=== PATIENT | male | born 1925 | race Caucasian/White ===

== ENCOUNTER 2016-09-02 20:47 | Emergency (ER) | payer MEDICARE, BC ==
[2016-09-02 21:14] VITALS: BP 127/77
[2016-09-02] MEDS ORDERED: Bacitracin Oint 1 GM U/D Packet TOP ONE (21:25)
[2016-09-02] MEDS ORDERED: Lidocaine 1% 30 ML SDV INJECT ONE (21:25)
[2016-09-02] MEDS ORDERED: Diphtheria,Pertussis(Acell),Tetanus Vaccine 0.5 ML SDV IM ONE (22:02)
--- NOTE | 2016-09-02 22:05 | EDM.PDOC ---
ED HPI GENERAL MEDICAL PROBLEM - General Chief Complaint: Upper Extremity Injury/Pain Stated Complaint: SMASHED THUMB [id number] Time Seen by Provider: 09/02/16 21:22 Source of Information: Reports: Patient History Limitations: Reports: No limitations - History of Present Illness INITIAL COMMENTS - FREE TEXT/NARRATIVE: This 89 yo male patient reports to the ED with a laceration and crush injury to his right diatal thumb. 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 The patient placed a pressure bandage on his hand shortly after the incident. After the patient had dinner, the patient's daughter convinced him into coming to the ED to be evaluated. 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) Right 1-Thumb Pain Score (Numeric/FACES): 3 - Related Data Allergies Allergy/AdvReac Type Severity Reaction Status Date / Time Penicillins Allergy Rash Verified 09/02/16 21:12 Home Meds: Home Meds Levothyroxine Sodium [Synthroid] 75 mcg PO ACBREAKFAST 09/02/16 [History] Past Medical History Endocrine/Metabolic History: Reports: Hypothyroidism Social & Family History - Tobacco Use Smoking Status *Q: Never Smoker - Caffeine Use Caffeine Use: Reports: None - Recreational Drug Use Recreational Drug Use: No Review of Systems - Review of Systems Review Of Systems: ROS reveals no pertinent complaints other than HPI. Trauma Exam - Physical Exam Exam: See Below Exam Limited By: No limitations General Appearance: Reports: alert, WD/WN, no apparent distress Head: Reports: atraumatic, normocephalic Eyes: bilateral eye: EOMI, normal inspection, PERRL Ears: Reports: normal external exam Nose: Reports: normal inspection, normal mucousa, no blood Throat/Mouth: Reports: Normal inspection, Normal lips, Normal teeth, Normal gums , Normal oropharynx, Normal voice, No airway compromise Neck: Reports: non-tender, full range of motion, normal alignment, normal inspection Respiratory Exam: Reports: no respiratory distress, lungs clear, normal breath sounds Cardiovascular: Reports: normal peripheral pulses, regular rate, rhythm, no edema, no gallop, no JVD, no murmur, no rub GI/Abdominal: Reports: Normal Bowel Sounds, Soft, Non-Tender, No Organomegaly, No Distention, No Abnormal Bruit, No Mass (Male) Exam: Deferred Rectal (Males) Exam: Deferred Back: Reports: full range of motion, normal inspection, non-tender Extremities: Pain with Movement (right distal thumb) 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 ) - [place] Coma Score Best Eye Response ([place]): (4) open spontaneously Best Verbal Response ([place]): (5) oriented Best Motor Response ([place]): (6) obeys commands [place] Total: 15 ED TRAUMA EXTREMITY PROCEDURES - Laceration/Wound Repair Right Distal Finger Lac/wound length in cm: 2.0 Appearance: subcutaneous Distal NVT: neuro & vascular intact Anesthetic type: local Local anesthesia - Lidocaine (Xylocaine): 1% plain Local anesthetic volume: 5cc Skin prep: chlorhexidine (hibiciens), saline Exploration/Debridement/Repair: wound explored, in a bloodless field, explored to base, no foreign material found Closed with: sutures Suture size: 4-0 # of sutures: 9 Suture type: prolene, interrupted, simple Drain placement: No Sterile dressing applied: nurse Tetanus status addressed: Yes Complications: No Course - Vital Signs Last Recorded V/S: Last Vital Signs Temp 36.3 C 09/02/16 21:13 Pulse 74 09/02/16 21:13 Resp 18 09/02/16 21:13 BP 127/77 09/02/16 21:13 Pulse Ox 97 09/02/16 21:13 - Orders/Labs/Meds Orders: Active Orders 24 hr Category Date Time Status Vaccines to be Administered [RC] PER UNIT ROUTINE Care 09/02/16 22:02 Ordered Meds: Medications Discontinued Medications Generic Name Dose Route Start Last Admin Trade Name Freq PRN Reason Stop Dose Admin Bacitracin 1 dose 09/02/16 21:25 Bacitracin Oint 1 Gm TOP 09/02/16 21:26 ONETIME ONE Diphtheria/Tetanus/Acell Pertussis 0.5 ml 09/02/16 22:02 Adacel IM 09/02/16 22:03 .ONCE ONE Lidocaine HCl 30 ml 09/02/16 21:25 Xylocaine-Mpf 1% INJECT 09/02/16 21:26 ONETIME ONE Departure - Departure Time of Disposition: 22:02 Disposition: Home, Self-Care 01 Condition: fair Clinical Impression: Laceration of right thumb Qualifiers: Encounter type: initial encounter Qualified Code(s): S61.011A - Laceration without foreign body of right thumb without damage to nail, initial encounter - Discharge Information Instructions: Laceration Care, Adult, [id number] Forms: ED Department Discharge Care Plan Goals: The patient was advised of the examination and x-ray results during the visit. The wound margins were well approximated during the visit without difficulties. The patient was encouraged to keep the area clean and dry over the next 24 hours. The patient should have the sutures removed in 10-14 days. If the patient has any additional symptoms or concerns, the patient should follow-up with his primary care facility or return to the emergency department. - My Orders Last 24 Hours: My Active Orders 09/02/16 22:02 Vaccines to be Administered [RC] PER UNIT ROUTINE - Assessment/Plan Last 24 Hours: My Active Orders 09/02/16 22:02 Vaccines to be Administered [RC] PER UNIT ROUTINE
== END 2016-09-02 22:19 | disposition home or self-care (01) ==
LOC: MERGE 20:47 → DL.ED 20:47
DX: S61.011A Laceration without foreign body of right thumb without damage to nail, initial encounter (principal); E03.9 Hypothyroidism, unspecified; Z88.0 Allergy status to penicillin; Z23 Encounter for immunization; W22.8XXA Striking against or struck by other objects, initial encounter
CPT/HCPCS: 12001; 73140-F5; 90715; 99282; 99283